=== PATIENT | female | born 1990 | race Caucasian/White ===

== ENCOUNTER 2022-05-26 08:00 | Outpatient (CLI) | payer OTHER ==
--- NOTE | 2022-05-27 08:27 | XRAY Report ---
PROCEDURE: Foot 2 View LT INDICATIONS: L FOOT PX TECHNIQUE: 2 views of the foot were acquired. COMPARISON: None. FINDINGS: Bones: No fractures or dislocations. No suspicious bony lesions. Mild degenerative joint disease. There is an os navicularum. Soft tissues: No tibiotalar joint effusion. Achilles tendon appears normal. IMPRESSION: 1. No acute osseous abnormalities. If clinical symptoms persist, a follow-up examination is suggested in 7-10 days. Reviewed by: Ronaldo Brice MD on 05/27/2022 8:26 AM PDT Approved by: Ronaldo Brice MD on 05/27/2022 8:26 AM PDT Station ID: [id number]
== END 2022-05-26 23:59 | disposition home or self-care (01) ==
LOC: DI.N 08:00
PROVIDERS: ATTEND Registered Nurse
DX: S99.922A Unspecified injury of left foot, initial encounter (principal)

== ENCOUNTER 2022-10-09 08:31 | Outpatient (CLI) | payer OTHER | END 2022-10-09 08:55 | disposition EMS.NT | LOC: EMS 08:31 | DX: R42 Dizziness and giddiness (principal); R53.1 Weakness ==

== ENCOUNTER 2022-11-30 14:33 | Outpatient (CLI) | payer OTHER ==
--- NOTE | 2022-11-30 15:31 | SLEEP CARE CONSULTATION ---
Information from patient questionnaire entered by Renae Dill. I have reviewed and concur with the information entered by Renae Dill. This document represents the service I personally performed and the decisions made by me, Katia Cortés ARNP. History of Present Illness Service Date and Time: 11/30/2022 1433 Reason for Visit: New patient Chief Complaint: reports: Unrefreshed sleep, Snoring, Excessive daytime sleepiness, Fatigue, Frequent awakenings at night Date of Onset: 3MONTHS or more Usual bedtime: 12AM Time it takes to fall asleep: 5MIN Snores at night: Yes Observed to quit breathing while asleep: Yes Sleeps alone due to snoring: No Number of times waking at night: 2 Reasons for waking at night: reports: Snoring, Bathroom, Other (UNKNOWN). denies: Choking, Gasping for air Toss, Turn, or Twitch while sleeping: Yes Recalls having dreams: Yes Usually gets out of bed at: 7AM Feels refreshed in the morning: No Morning headache: Yes (4 days a week; just mild frontal headache, gone in 2 hrs) Sleepy or fatigued during the day: Yes Ever fallen asleep while driving: No (has some drowsy driving but is too stressed to fall asleep) Takes day naps: Yes (daily for about 15-30 minutes) Dreams during day naps: Yes Prior sleep studies: No Additional HPI information: I had the pleasure of seeing REGINA SHANKS today regarding the possibility of her having a sleep disorder. Her current complaints are unrefreshed sleep, snoring, excessive daytime sleepiness, fatigue and frequent night awakenings. She states her tells her she snores loudly and rarely will sleep separate. He has never mentioned that she stops breathing at night but that she does talk in her sleep. She states her nose is blocked when she is laying down for sleep. She is a mouth breather at night. She does not wake up feeling rested even if she sleeps 8 hours. - Parasomnia Symptoms Ever been unable to move upon waking from sleep: No Walks in sleep: No Talks in sleep: Yes Ever acted out dreams in sleep: Yes Ever felt weak in the knees when startled or emotional: Yes (has not fallen to ground; "just has knee pain") Bothered by creepy, crawly, restless sensations in legs: Yes (pain in legs when standing for long periods of time at work) Problems with memory or concentration: Yes (both) Subjective Initial [place] Sleepiness Scale score: 19 (11/30/22) Past Medical History Past Medical History: reports: Other (PRE DIABETES) Social History The patient's occupation is a [employer]. Patient is and lives in [place]. Have you smoked in the past 12 months: No Years of smokin Quit date: 2015 Alcohol use: Yes Alcohol amount and frequency: 1-2 CAN BEER ONCE A WEEK Caffeine use: Yes Caffeine amount and frequency: 1 CUP A DAY Family History Family history of sleep disordered breathing: Yes Family Hx Sleep Apnea: Mother: Snoring, Father: Snoring, Sibling: Snoring Allergies and Home Medications Known drug allergies: No Drug allergies reviewed: Yes Home medication list reviewed: Yes Allergy and home medication list: Medications: Metformin 1000 mg daily Review of Systems Weight gain over past 5 years: 30 Cardiovascular: denies: high blood pressure Respiratory: denies: shortness of breath Gastrointestinal: denies: heartburn Neurological: denies: headaches Psychiatric: denies: Attention Deficit Hyperactivity, anxiety, depression Ear/Nose/Throat: reports: sinus problems, wisdom teeth removed. denies: tonsillectomy Musculoskeletal: reports: back pain, other (KNEE PAIN) Immunologic: reports: sneezing, itching, allergies to food or environment Physical Exam Vital signs obtained and entered by: RENAE Barroso MA Blood Pressure: 102/62 (LEFT ARM) Cuff size: long Heart Rate: 76 O2 Saturation: 98 Height: 5 ft 7 in Weight: 212 lb 6.4 oz Body Mass Index: 33.3 BMI Classification: Obese Neck circumference: 15.5 Mouth and throat: narrow oropharynx Soft palate: long Hard palate: normal Uvula: normal Uvula visualization: 25% Mallampati Class III Tongue: enlarged in size with teeth pineda on lateral edges Tonsils: small Neck: normal w/o lymphadenopathy or thyromegaly Heart: regular rate and rhythm Lungs: clear bilaterally Impression and Plan 1. Suspected Obstructive Sleep Apnea-Hypopnea Syndrome, as suggested by a history of loud and irregular snoring, morning headache, frequent awakening during the night, unrefreshed sleep, cognitive impairment, and excessive daytime sleepiness. Narrow oropharynx and obesity are common predisposing factors for obstructive sleep apnea-hypopnea syndrome. I recommend proceeding to polysomnography to confirm the diagnosis and to assess severity. If the patient has significant sleep disordered breathing, a manual CPAP titration study will also be performed to find the optimal treatment pressure. I informed the patient of what the sleep studies involve and after some discussion, obtained agreement to proceed. The pathophysiology of obstructive sleep apnea-hypopnea syndrome was discussed with the patient and health risks of cardiovascular and cerebrovascular disease if not treated. Risks of drowsy driving discussed in detail and patient advised to avoid long distance driving and to crop puller at the first sign of drowsiness. Patient agreed to plan. * Schedule polysomnography +- manual CPAP titration study and return in 1-2 weeks after the study to discuss result and initiate therapy. * Avoid long distance driving or driving when feeling sleepy. * Avoid alcohol, sedative and muscle relaxant around bedtime. * Attempt to lose weight. * Review instructions provided by trained office staff on how to prepare for the sleep study. * Return for follow-up after sleep study completed. Counseling Topics: Weight loss health impact Visit Type: In Office Time Spent with Patient (minutes): 31 Provider Statement: I spent 100% of the Face to Face Visit with the patient with greater than 50% spent counseling the patient and coordination of care.
[2022-11-30 15:32] VITALS: BP 102/62
== END 2022-11-30 14:34 | disposition home or self-care (01) ==
LOC: SC 14:33
PROVIDERS: ATTEND Nurse Practitioner Family
DX: R06.83 Snoring (principal); G47.8 Other sleep disorders; R51.9 Headache, unspecified; E66.9 Obesity, unspecified; Z68.33 Body mass index [BMI] 33.0-33.9, adult; Z87.891 Personal history of nicotine dependence
CPT/HCPCS: 99203; 99212

== ENCOUNTER 2023-01-11 19:44 | Outpatient (CLI) | payer OTHER | END 2023-01-11 19:45 | disposition home or self-care (01) | LOC: SC 19:44 | PROVIDERS: ATTEND Nurse Practitioner Family | DX: G47.61 Periodic limb movement disorder (principal) | CPT/HCPCS: 95810 ==

== ENCOUNTER 2023-01-20 09:12 | Outpatient (CLI) | payer OTHER ==
--- NOTE | 2023-01-20 09:34 | SLEEP CARE CONSULTATION ---
Information from patient questionnaire entered by Regis Logan. I have reviewed and concur with the information entered by Regis Logan. This document represents the service I personally performed and the decisions made by , Katia Cortés ARNP. History of Present Illness Service Date and Time: 01/20/2023911 Initial [place] Sleepiness Scale score: 19 (11/30/22) Current [place] Sleepiness Scale score: 19 Additional HPI information: REGINA SHANKS returns for follow up and results of the recently performed polysomnography. The patient was informed of the following findings: No significant sleep disordered breathing with an average AHI of 2.7 and murray oxygen saturation of 91%. I explained the pathophysiology behind obstructive sleep apnea. Patient does not have sleep apnea and was advised how weight gain could increase the risk of developing sleep apnea in the future. Patient has light to loud snoring. Snoring can be reduced by weight loss. Weight loss is best achieved with diet consult. Patient instructed to contact PCP for referral. Snoring can also be treated with an oral appliance from a dentist. Advised to check insurance coverage. In addition, an ENT evaluation can be do to see if other treatment is indicated. Patient counseled not drink alcohol less than 4 hours before bedtime as it can increase snoring and apnea. Patient was cautioned about risks of drowsy driving until sleepiness symptoms resolve. Patient denies drowsy driving. Sleep Study - Results Type of Sleep Study: Polysomnography Prior sleep studies: No Polysomnography/Home Sleep Study results: IMPRESSION: The quality of the study is good. The patient had normal sleep efficiency. The sleep architecture was normal as well. Respiratory monitoring showed no significant sleep disordered breathing (AHI = 2.7) or hypoxia (murray oxygen saturation of 91%). The few respiratory events occurred mainly during supine sleep (supine AHI = 4.0; non-supine = 0.44). Snore was light to loud in intensity. There was moderate periodic leg movement of sleep not contributing to the sleep fragmentation. Cardiac rhythm was normal sinus rhythm without significant arrhythmia. No abnormal behavior (parasomnia) observed during the night. Allergies and Home Medications Known drug allergies: No Drug allergies reviewed: Yes Home medication list reviewed: Yes (no changes) Allergy and home medication list: Allergies No Known Drug Allergies Allergy Review of Systems Review of systems same as previous: Yes (no changes) Physical Exam Vital signs obtained and entered by: Katia Momin NP Blood Pressure: 114/69 Cuff size: wrist (left) Heart Rate: 85 O2 Saturation: 98 Height: 5 ft 7 in Weight: 143 lb 12.8 oz Body Mass Index: 22.5 BMI Classification: Normal Impression and Plan 1. Snoring but no significant sleep disordered breathing. An oral appliance can also be used for snoring. This would require a dental consultation. Patient cautioned not to use other online appliances as can cause bite issues. A list of accredited dentists in [facility] and one local dentist who makes oral appliances is available in the office as needed. Patient is advised to check if insurance will cover. An ENT consult can also be helpful to determine if any other treatment is an option. 2. Periodic limb movement, moderate, that did not fragment patients sleep. Periodic limb movement of sleep (PLMS) is characterized by episodes of repetitive limb movements that occur during sleep and usually involve the lower limbs. The etiology is unknown. Caffeine can aggravate PLMS and should be avoided. Sleep hygiene methods can also improve sleep as well as lifestyle changes such as regular exercise. Patient was advised that no treatment is needed at this time. But further evaluation may be indicated. * Follow up with primary provider for evaluation of moderate PLMs * Avoid alcohol consumption near bedtime * The patient is cautioned about driving until sleepiness is completely resolv ed. * Return as needed for follow up. Visit Type: In Office Time Spent with Patient (minutes): 20 Provider Statement: I spent 100% of the Face to Face Visit with the patient with greater than 50% spent counseling the patient and coordination of care.
[2023-01-20 09:36] VITALS: BP 114/69
== END 2023-01-20 09:13 | disposition home or self-care (01) ==
LOC: SC 09:12
PROVIDERS: ATTEND Nurse Practitioner Family
DX: R06.83 Snoring (principal); G47.61 Periodic limb movement disorder
CPT/HCPCS: 99212; 99213

== ENCOUNTER 2023-12-02 22:13 | Outpatient (CLI) | payer OTHER | END 2023-12-02 23:59 | disposition EMS.NT | LOC: EMS 22:13 | DX: R20.2 Paresthesia of skin (principal); R45.89 Other symptoms and signs involving emotional state; F12.90 Cannabis use, unspecified, uncomplicated; F10.90 Alcohol use, unspecified, uncomplicated ==